=== PATIENT | male | born 1970 | race Caucasian/White ===

== ENCOUNTER 2021-03-31 12:49 | Emergency (ER) | payer OTHER ==
[2021-03-31] MEDS ORDERED: NAPROXEN500 MG PO (14:29)
[2021-03-31] MEDS ORDERED: NORFLEX 100 MG100 MG PO (14:29)
== END 2021-03-31 14:35 | disposition home or self-care (01) ==
LOC: ER1 12:49
DX: R51.9 Headache, unspecified (principal); M54.2 Cervicalgia; M25.512 Pain in left shoulder; F17.210 Nicotine dependence, cigarettes, uncomplicated; W11.XXXA Fall on and from ladder, initial encounter
CPT/HCPCS: 70450; 71046; 72125; 73030; 73060; 99284